=== PATIENT | male | born 1985 | race Hispanic/Latino ===

== ENCOUNTER 2020-09-07 08:51 | Emergency (ER) | payer SELFPAY ==
[~2020-09-07] VITALS: Ht 152.4 cm; Wt 70.9 kg
[2020-09-07 09:41] LABS: HEMOGLOBIN 14.7 g/dl (13.5-17.5); MEAN CORPUSCULAR HEMOGLOBIN 28.2 pg (27.0-33.0); MEAN CORPUSCULAR HGB CONC 34.2 g/dl (32.0-36.5); MEAN CORPUSCULAR VOLUME 82.4 fl (80.0-96.0); PLATELET COUNT, AUTOMATED 316 10^3/uL (150-450); RED BLOOD COUNT 5.22 10^6/uL (4.30-6.10); WHITE BLOOD COUNT 8.9 10^3/uL (4.0-10.0)
--- NOTE | 2020-09-07 09:52 | REP ---
INDICATION: fish bone in throat, lat XR under "[facility]" COMPARISON: None. TECHNIQUE: Axial noncontrast images from the skull base to the thoracic inlet with coronal and sagittal reformations. This CT examination was performed using the following dose reduction techniques: Automated exposure control, adjustment of mA and/or kv according to the patient's size, and use of iterative reconstruction technique. FINDINGS: The naso, gautam and hypopharynx, larynx and subglottic soft tissues are normal in appearance. The airway and visualized trachea appears patent, midline, and normal. The esophagus is normal. There is no evidence for abnormal gas collection or foreign body. The salivary and thyroid glands are normal. Small lymph nodes less than 1 cm in size are present in the internal jugular chains, posterior triangles, submandibular and submental areas. There is no neck mass or adenopathy. The lung apices are clear. The visualized sinuses are clear. The osseous structures appear intact and normal. IMPRESSION: No evidence for abnormal gas collection or foreign body. There is no neck mass or adenopathy. <Electronically signed by Kirill Guerin > 09/07/20 0949
[2020-09-07 10:44] VITALS: BP 122/58
== END 2020-09-07 10:47 | disposition home or self-care (01) ==
LOC: M ED 08:51
DX: R09.89 Other specified symptoms and signs involving the circulatory and respiratory systems (principal)